=== PATIENT | female | born 1965 | race Caucasian/White ===

== ENCOUNTER 2020-02-21 10:15 | Emergency (ER) | payer BC, SELFPAY ==
[2020-02-21] VITALS (15 sets, daily range): BP systolic 91–112; BP diastolic 51–70; PULSE 54–72; RESP 13–22; TEMP 36.4–36.8; O2SAT 93–99
--- NOTE | 2020-02-21 10:30 | DI.MRI_ITS ---
EXAM: MR BRAIN WO CLINICAL HISTORY: Dizziness. TECHNIQUE: Multiplanar multisequence MRI of the brain was performed. CONTRAST MATERIAL: IV Contrast: Noncontrast COMPARISON: No exams were available for comparison FINDINGS: VENTRICLES AND EXTRA AXIAL SPACES: Normal in size and morphology for the patient's age. HEMORRHAGE: None. CEREBRAL PARENCHYMA: No focus of restricted diffusion to suggest acute infarct. No space-occupying le brittany identified. MIDLINE SHIFT: None. BRAINSTEM/CEREBELLUM: Normal. VISUALIZED PARANASAL SINUSES/MASTOIDS: Minimal ethmoid mucosal thickening. OTHER FINDINGS: The orbits are unremarkable. The pituitary is normal in size. The vascular flow voi ds appear intact. IMPRESSION: Unremarkable MRI of the brain. DATA REPOSITORY:
--- NOTE | 2020-02-21 10:30 | RT.EKG_ITS ---
APPROVED REPORT Exam: Resting ECG Patient Location: E HR:61 bpm ECG Measurements Heart Rate 61 AXIS ME 151 P 6 QRSd 117 QRS 22 QT 454 T 54 QTc 458 Conclusion Sinus rhythm...normal P axis, V-rate 60- 99 Nonspecific intraventricular conduction delay...QRSd >115mS, not LBBB/RBBB
--- NOTE | 2020-02-21 10:45 | DI.MRI_ITS ---
CLINICAL HISTORY: Dizziness. TECHNIQUE: 3D ylys-eh-nvdutr study was performed. COMPARISON: None. FINDINGS: Carotid Arteries: Petrous: Normal. Cavernous: Normal. Cerebral: Normal. Middle Cerebral Arteries: Right: No aneurysm or significant stenosis. Left: No aneurysm or significant stenosis. Anterior Cerebral Arteries: Right: No aneurysm or significant stenosis. Left: No aneurysm or significant stenosis. Vertebral Arteries: Right: No aneurysm or significant stenosis. Left: No aneurysm or significant stenosis. . Basilar Artery: No aneurysm or significant stenosis. Small Vessels: No evidence of beading. IMPRESSION: Normal MRA examination of the [place]. DATA REPOSITORY:
--- NOTE | 2020-02-21 10:45 | DI.MRI_ITS ---
EXAM: MR ANGIO NECK WO CLINICAL HISTORY: Dizziness TECHNIQUE: 2D and 3D ymdv-ax-eihxas sequences were performed. COMPARISON: No exams were available for comparison FINDINGS: The bilateral common, internal and external carotid arteries are patent and normal in diameter throug hout. There is no evidence of dissection, significant stenosis or mural irregularity. IMPRESSION: Negative MRA of the neck DATA REPOSITORY:
--- NOTE | 2020-02-21 10:47 | ED.GENADUL_ITS ---
Discharge Plan Disposition Patient Disposition: HOME Condition: Stable Discharge Details Clinical Impression: Vertigo Primary Care Provider: Vianey,Local ED Provider: Savanah Nunez Home Meds and New Rx's Prescriptions: New meclizine 25 mg tablet 25 mg PO BID PRN (Reason: dizziness) Qty: 14 RF: 0 ondansetron HCl [Zofran] 4 mg tablet 4 mg PO Q8H PRN (Reason: nausea and vomiting) Qty: 10 RF: 0 Discharge Instructions Instructions: Vertigo (ED) Additional Instructions: Follow up with primary care provider in 3-5 days. Return to ED sooner if any worsening or concerns. Increase oral fluids. Please take Tylenol or Ibuprofen with food every 4-6 hours as needed for pain and swelling. Return for any worsening headache, continued vomiting, fever or any concerns. Take medications as prescribed. Discharge Data Discharge Date/Time-TO BE ENTERED AT DEPARTURE: 02/21/20 14:42 Medical Decision Making <Savanah Nunez - Last Filed: 02/21/20 15:32> 54-year-old female presents to the ER with chief complaint of dizziness with acute onset while on a walk earlier today. Patient states that she looked up to take a picture of them out and became suddenly dizzy, she then began staggering and sat down on the side of the road. She then vomited 2-3 times. Since then the dizziness has been constant, positive nausea. She is dizzy even while stationary with her eyes closed. She does have a history of migraine headaches but does not complain of a headache at this time. Has no visual disturbances no aura. She is alert and oriented x3 upon arrival focal neuro is intact, no gross neuro deficits noted. She does have mild nystagmus. Denies any chest pain, abdominal pain she reports loose stools this morning. Denies any dysuria or fever. EKG was reviewed by Dr. Baldev Mendoza MD ER attending, normal sinus rhythm, no STEMI please see his official read. Patient transported via stretcher to MRI, reports feeling better after meclizine and NS. 1317: Discussed MRI result she is within normal limits with patient who verbalizes understanding. Awaiting second serial troponin which is due at 1330 patient agrees to wait for that blood draw. Plan is to discharge patient home with a diagnosis of benign positional vertigo. Differential diagnosis includes CVA, venous sinus thrombosis, vertigo, viral illness. Serial troponin is within normal limits patient to be discharged home with strict return instructions, verbalized understanding. Prescription given for meclizine and instructed to follow-up with PCP in the next 1 to 2 weeks, verbalizes understanding. <Baldev Mendoza MD - Last Filed: 03/15/20 23:37> Patient seen, examined, and discussed with TEJ Nunez. Considered cardiogenic etiology. Screening ECG was reviewed and interpreted by me: Please see report, sinus rhythm noted with nonspecific intraventricular conduction delay with QRS duration of 117. Exam concerning for very subtle vertical nystagmus, hints testing otherwise negative. Consider central pathology. Plan to obtain MRI of the brain and MRA of the brain and neck. I agree with treatment plan as discussed/documented. HPI <Savanah Nunez - Last Filed: 02/21/20 15:32> General Mode of arrival: wheelchair . Date/Time Provider Initiated Documentation: 02/21/20 10:16 . Limitations to Documentation: no limitations . Information obtained by: patient . HPI Narrative: 54-year-old female presents to the ER with chief complaint of dizziness with acute onset while on a walk earlier today. Patient states that she looked up to take a picture of them out and became suddenly dizzy, she then began staggering and sat down on the side of the road. She then vomited 2-3 times. Since then the dizziness has been constant, positive nausea. She is dizzy even while stationary with her eyes closed. She does have a history of migraine headaches but does not complain of a headache at this time. Has no visual disturbances no aura. She is alert and oriented x3 upon arrival focal neuro is intact, no gross neuro deficits noted. She does have mild nystagmus. Denies any chest pain, abdominal pain she reports loose stools this morning. Denies any dysuria or fever. Related Data Home Medications Medication Instructions Recorded Confirmed meclizine 25 mg PO BID PRN #14 tab 02/21/20 ondansetron HCl [Zofran] 4 mg PO Q8H PRN #10 tab 02/21/20 Previous Rx's Medication Instructions Recorded meclizine 25 mg PO BID PRN #14 tab 02/21/20 ondansetron HCl [Zofran] 4 mg PO Q8H PRN #10 tab 02/21/20 Allergies Allergy/AdvReac Type Severity Reaction Status Date / Time amoxicillin Allergy Unverified 02/21/20 10:38 General Stated Complaint: Dizzy/Sync SCOT: 3 Review of Systems <Savanah Nunez - Last Filed: 02/21/20 15:32> Narrative: Constitutional: Negative for weight loss, alert and oriented, well groomed, normal body habitus, appears comfortable. HEENT: Denies trauma, headaches, blurry vision, nasal discharge, sore throat, trouble swallowing. Chest: Denies chest pain, palpitations, irregular rhythm, hypertension. Respiratory: Denies Shortness of breath, cough, hemoptysis. GI: Denies abdominal pain, nausea, vomiting, diarrhea, constipation. : Denies dysuria, hematuria, flank pain, rectal bleeding. Neuro: Denies blurry vision, weakness, syncope, headache or facial numbness. Positive dizziness. Hematologic: Denies easy bruising, intolerance to heat or cold, hair loss. PFSH <Savanah Nunez - Last Filed: 02/21/20 15:32> Social History Smoking/Tobacco Use Status: Never Alcohol Intake: current Alcohol Intake frequency: a few times a month Drug use: Never Substance use type: does not use Do you feel safe at home: Yes Do you feel safe in your relationship?: Yes Exam <Savanah Nunez - Last Filed: 02/21/20 15:32> Narrative Exam Narrative: Constitutional: Alert and oriented x3. Appears stated age. Normal body habitus. Head: Normocephalic, no trauma. Eyes: Pupils PERRLA, Red reflex noted, EOM's intact. Eyelids symmetrical without lesions, discharge, or swelling. ENT: Bilateral TM's WNL, External ear normal to inspection, no mastoid TTP, swelling, or erythema, Nasal turbinates WNL, no nasal discharge. Normal dentition, Posterior pharynx WNL, no exudate. Chest: RRR, Normal S1, S2, distal pulses intact. Resp: Lungs clear to auscultation bilaterally, no wheezes, rales, or rhonchi. Musculoskeletal: Normal gait, 5/5 strength to all four extremities. Skin: No suspicious rashes or lesions. Capillary refill less than 2 sec. Neurologic: Cranial nerves II-XII intact. Alert and oriented x 3. DTR's intact. Mild vertical nystagmus. Hematologic/Lymphatic: No ecchymosis, no lymphadenopathy. Course <Savanah Nunez - Last Filed: 02/21/20 15:32> Vital Signs Vital signs: Vital Signs Temperature 36.4 C 02/21/20 10:27 Pulse 63 02/21/20 10:27 Blood Pressure 112/69 02/21/20 10:27 Pulse Oximetry 97 02/21/20 10:27 Temperature 36.4 C 02/21/20 10:27 Temperature Source Temporal Artery Scan 02/21/20 10:27 Pulse 63 02/21/20 10:27 Respiratory Rate 18 02/21/20 10:46 Respiratory Effort Non-Labored 02/21/20 10:46 Respiratory Depth Normal 02/21/20 10:46 Respiratory Pattern Normal 02/21/20 10:46 Blood Pressure 112/69 02/21/20 10:27 Blood Pressure Position Supine 02/21/20 10:27 Pulse Oximetry 97 02/21/20 10:27 Oxygen Delivery Method Room Air 02/21/20 10:27 Oxygen Flow Rate 0 02/21/20 10:27 Pain Level 0 02/21/20 10:27
[2020-02-21 10:58] LABS: Abs Immature Grans 0.02 10^3/uL (0.0-0.06); Absolute Basophil Count 0.04 10^3/uL (0.0-0.2); Absolute Eosinophil Count 0.33 10^3/uL (0.0-0.7); Absolute Monocyte Count 0.43 10^3/uL (0.1-0.8); Absolute Neutrophil Count 1.61 10^3/uL (1.2-6.7); Basophils % 0.8; Eosinophils % 6.3; HCT 40.3 % (36.0-46.0); HGB 13.5 g/dL (11.2-15.7); Immature Grans % 0.4; Lymphocytes % 53.5; MCH 28.7 pg (27.0-33.0); MCHC 33.5 % (32.0-36.0); MCV 85.7 fL (80-95); MPV 11.1 fL (8.0-11.0); Monocytes % 8.2; Neutrophils % 30.8; Nucleated RBC 0 %; Platelet Count 200 10^3/uL (130-400); RDW 13.1 % (11.7-14.6); WBC 5.23 10^3/uL (4.4-10.8)
[2020-02-21] MEDS: Meclizine 25 MG TAB PO (11:01)
[2020-02-21] MEDS: Normal Saline 1,000 ML 1000 ML IV (11:02)
[2020-02-21] MEDS: Ondansetron 4 MG/2 ML VIAL IVP (11:02)
[2020-02-21 11:14] LABS: ALT 27 U/L (14-59); AST 17 U/L (15-37); Albumin 3.5 g/dL (3.4-5.0); Alkaline Phosphatase 67 U/L (46-116); Anion Gap 9.6 mmol/L (3-11); BUN 17 mg/dL (7-18); Bilirubin, Total 0.5 mg/dL (0.2-1.0); CO2 24.4 mmol/L (21.0-32.0); CREATININE 0.85 mg/dL (0.55-1.02); Calcium 8.8 mg/dL (8.5-10.1); Chloride 106 mmol/L (98-107); Glucose 110 mg/dL (74-106); Magnesium 1.8 mg/dL (1.8-2.4); Potassium 3.6 mmol/L (3.5-5.1); Sodium 140 mmol/L (136-145); Total Protein 7.1 g/dL (6.4-8.2)
[2020-02-21 11:15] LABS: Troponin I < 0.05 ng/mL (<0.06)
[2020-02-21 12:23] LABS: Bilirubin Negative (Negative); Blood Negative (Negative); Clarity Clear (Clear); Glucose Negative (Negative); Ketones Negative (Negative); Leukocyte Esterase Moderate (Negative); Nitrite Negative (Negative); Specific Gravity 1.025 (1.005-1.025); Urobilinogen 0.2 EU/dL (Up TO 0.2)
[2020-02-21 12:35] LABS: Bacteria Moderate HPF (Negative); C & S Indicated? No/Sq. Contamination; Casts Negative LPF (Negative); Crystals Negative HPF (Negative); Epithelial Cells Many HPF (Negative); Mucus Negative (Negative); WBC 20-50 HPF (0-5)
--- NOTE | 2020-02-21 13:30 | RT.EKG_ITS ---
APPROVED REPORT Exam: Resting ECG Patient Location: E HR:58 bpm ECG Measurements Heart Rate 58 AXIS [place] 139 P 30 QRSd 115 QRS 5 QT 471 T 49 QTc 464 Conclusion Sinus bradycardia...rate< 60 Incomplete right bundle branch block...QRSd >112, terminal axis(90,270)
[2020-02-21 13:59] LABS: Troponin I < 0.05 ng/mL (<0.06)
== END 2020-02-21 14:42 | disposition home or self-care (01) ==
PROVIDERS: Emergency Provider Registered Nurse Emergency
DX: R42 Dizziness and giddiness (principal); R11.2 Nausea with vomiting, unspecified
CPT/HCPCS: 36415; 36416; 70544; 70547; 80053; 82962; 93005; 96361; 96374; 99285; 70551; 81003; 81015; 83735; 84484; 85025; 93010; 99284; J2405

== ENCOUNTER 2021-08-19 10:41 | Outpatient (CLI) | payer OTHER, SELFPAY ==
--- OUTSIDE RECORDS SUMMARY | 2021-08-19 10:47 | XMS_ITS ---
:1965 Author Organization [facility] Address [address], [place] [id number] Care Team Providers Name Role Phone Naz Stock Unavailable Unavailable PROBLEMS Type Condition ICD9-CM Code WQK22-LQ Code Onset Condition SNO MED Code Dates Status Problem Migraine with G43.109 Active 048928 6 aura, not intractable, without status migrainosus Problem Obesity, E66.9 Active 902716769 unspecified ALLERGIES Substance Reaction Event Type Date Status Amoxicillin hives Drug Allergy Jul, Active ENCOUNTERS Encounter Location Date Diagnosis [address] Jul, Migraine with aura, not [facility] [address] [place] [address] intractab le, without [phone] status migrainos us G43.109 ; Cough R05 and Encounter for general adul t medical examination with out abnormal finding s Z00.00 [facility] [address] [place] [address] Rd Jun, [facility] [address] [place] [id number] [facility] [address] [place] [address] Rd Apr, Migraine with aura, not [facility] [address] [place] [address] intractab le, without [phone] status migrainos us G43.109 [facility] [address] [place] [address] Rd Feb, Encounter for immunization [facility] [address] [place], [place] Z23 and M igraine with [id number] aura, not intrac table, without status m igrainosus G43.109 [facility] [address] [place] [address] Rd Oct, Encounter for general [facility] [address] [place] [address] adult med ical examination [id number] without abnormal findings Z00.00 [facility] [address] [place] [address] Rd 11 Jul, 2019 Cough R05 [facility] [address] [place], [place] [id number] [facility] [address] [place] [address] Rd Oct, Encounter for general [facility] [address] [place], [place] adult med ical examination [id number] without abnormal findings Z00.00 and Migra ine with aura, not intrac table, without status m igrainosus G43.109 [facility] [address] [place] [address] Rd Dec, [facility] [address] [place], [place] [id number] [facility] [address] Oct, Encounter for general [facility] [address] [place], [place] adult med ical examination [id number] without abnormal findings Z00.00 ; Migrain e with aura, not intrac table, without status m igrainosus G43.109 ; Planta r fascial fibromatosis M72 .2 and Obesity, unspeci fied E66.9 IMMUNIZATIONS Vaccine Route Administration Date Status Shingrix Unknown May 04, 2019 Administered Shingrix Unknown Mar 02, 2019 Administered TDap Unknown October 23, 2013 Administered Influenza (split) Unknown Feb 25, 2020 Administered SOCIAL HISTORY Qualifiers Date Never Smoker REASON FOR REFERRAL FUNCTIONAL STATUS PLAN OF CARE Activity Details Follow Up prn Reason: Pending Test CBC, WITH AUTO DIFF Pending Test COMPREHENSIVE METABOLIC PROF ILE Pending Test TSH VITAL SIGNS Temperature 97.0 degrees Fahrenheit 2019-08-01 Heart Rate 68 /min 2021-08-17 Heart Rate 65 /min 2020-02-25 Heart Rate 74 /min 2019-10-23 Heart Rate 72 /min 2019-08-01 Heart Rate 78 /min 2018-11-10 Heart Rate 80 /min 2017-10-24 Height 69 in 2021-08-17 Height 69 in 2020-02-25 Height 69 in 2019-10-23 Height 69 in 2019-08-01 Height 69 in 2018-11-10 Height 69 in 2017-10-24 Weight 230 lbs 2021-08-17 Weight 230 lbs 2020-02-25 Weight 224 lbs 2019-10-23 Weight 232 lbs 2018-11-10 Weight 230 lbs 2017-10-24 BMI 33.96 kg/m2 2021-08-17 BMI 33.96 kg/m2 2020-02-25 BMI 33.08 kg/m2 2019-10-23 BMI 34.26 kg/m2 2018-11-10 BMI 33.96 kg/m2 2017-10-24 Blood pressure systolic 120 mm Hg 2021-08-17 Blood pressure diastolic 80 mm Hg 2021-08-17 MEDICATIONS Medication Instructions Dosage Frequency Start Date End Date Duration S pramod Advil 200 MG Orally Three 1 tablet 8h Activ e times a day with food or milk as needed PROCEDURES Procedure Date Ordered Result Body Site IMMUNIZATION ADMIN Feb 25, 2020 [id number] VACC ABX FREE IM Feb 25, 2020 RESULTS Name Result Date Reference Range COMPREHENSIVE METABOLIC PANEL 2019-01-04 GLUCOSE 90 65-99 UREA NITROGEN (BUN) 19 7-25 CREATININE 0.88 0.50-1.05 eGFR NON-AFR. [place]ALLISIAN 74 > OR = 60 eGFR 86 > OR = 60 BUN/CREATININE RATIO NOT APPLICABLE 6-22 SODIUM 140 135-146 POTASSIUM 4.3 3.5-5.3 CHLORIDE 106 98-110 CARBON DIOXIDE 28 20-32 CALCIUM 9.3 8.6-10.4 PROTEIN, TOTAL 6.6 6.1-8.1 ALBUMIN 4.1 3.6-5.1 GLOBULIN 2.5 1.9-3.7 ALBUMIN/GLOBULIN RATIO 1.6 1.0-2.5 BILIRUBIN, TOTAL 0.6 0.2-1.2 ALKALINE PHOSPHATASE 63 33-130 AST 18 10-35 ALT 24 6-29 TSH W/REFLEX TO FT4 2019-01-04 TSH W/REFLEX TO FT4 2.12 CBC (INCLUDES DIFF/PLT) 2019-01-04 WHITE BLOOD CELL COUNT 4.6 3.8-10.8 RED BLOOD CELL COUNT 4.79 3.80-5.10 HEMOGLOBIN 13.9 11.7-15.5 HEMATOCRIT 41.7 35.0-45.0 MCV 87.1 80.0-100.0 MCH 29.0 27.0-33.0 MCHC 33.3 32.0-36.0 RDW 13.0 11.0-15.0 PLATELET COUNT 199 140-400 MPV 12.6 7.5-12.5 ABSOLUTE NEUTROPHILS 1697 0715-2814 ABSOLUTE LYMPHOCYTES 2245 850-3900 ABSOLUTE MONOCYTES 414 200-950 ABSOLUTE EOSINOPHILS 202 15-500 ABSOLUTE BASOPHILS 41 0-200 NEUTROPHILS 36.9 LYMPHOCYTES 48.8 MONOCYTES 9.0 EOSINOPHILS 4.4 BASOPHILS 0.9 LIPID PANEL 2019-01-04 CHOLESTEROL, TOTAL 207 <200 HDL CHOLESTEROL 55 >50 TRIGLYCERIDES 96 <150 LDL-CHOLESTEROL 132 CHOL/HDLC RATIO 3.8 <5.0 NON HDL CHOLESTEROL 152 <130 REASON FOR VISIT Tested positive for COVID on 07/23/2021, would like to be checked out, questions, follow up on ED visit at [facility] on 02/21/2020, ED follow up, Annual, persistent cough , Annual, feet, HIGHER LEVEL TEACHING ASSISTANT, Annual Insurance Providers [facility] Member Patient Patient Patient Patient Patient Subscriber Subscriber Subscriber Group Insurance Plan Plan Plan Plan ID Relationship Address Phone Name Date of ID Name Date of No Type Insurance Insurance Insurance Coverage to Subscriber Address Phone Name Dates Health [phone] Health self Bianca [id number] [id number] [id number] [place] [address] [employer] [address] [employer] self Bianca [id number] Y [id number] [facility] Candido Abdi [address] [facility] [address] [facility] [address]
--- OUTSIDE RECORDS SUMMARY | 2021-08-19 10:47 | XMS_ITS ---
:1965 Author Organization [facility] Address [address] [place], [place] [address] Care Team Providers Name Role Phone Amy Pisano Unavailable Unavailable PROBLEMS Unknown Problems ALLERGIES Substance Reaction Event Type Date Status Amoxicillin Unknown Drug Allergy Feb, Active ENCOUNTERS Encounter Location Date Diagnosis [facility] [address], [place], [place] [phone] [facility] [address], [place], [place] [phone] [facility] [address] Feb, Encounter for gynecological [place], [place] examination Z01. 419 ; [id number] Encounter for sc reening mammogram for ma lignant neoplasm of [place] st Z12.31 and Encounter fo r screening for human papill omavirus (HPV) Z11.51 [facility] [address] Dec, Encounter for gynecological [place], [place] examination Z01. 419 ; [id number] Encounter for sc reening mammogram for ma lignant neoplasm of [place] st Z12.31 and Encounter fo r screening for human papill omavirus (HPV) Z11.51 IMMUNIZATIONS No Known Immunizations SOCIAL HISTORY Qualifiers Date Never Smoker REASON FOR REFERRAL FUNCTIONAL STATUS PLAN OF CARE Activity Details Future Appointment Provider Name:Amy Botello in, 2022-02-22 02:30:00 PM, [address] , [place], [place], [phone], Future Test MAMMOGRAM, SCREENING 1 VITAL SIGNS Weight 238 lbs 2021-03-16 Weight 229 lbs 2019-12-31 Height 69 in 2021-03-16 Height 69 in 2019-12-31 BMI 35.14 kg/m2 2021-03-16 BMI 33.81 kg/m2 2019-12-31 Blood pressure systolic 124 mm Hg 2021-03-16 Blood pressure diastolic 78 mm Hg 2021-03-16 MEDICATIONS Medication Instructions Dosage Frequency Start Date End Date Duration S tatus Advil Unknown PROCEDURES No Known procedures RESULTS Name Result Date Reference Range PAP W/HR HPV 2021-03-16 - [place] RAQUEL SCR JAKUB W-CAD 2021-01-02 - [place] RAQUEL SCR JAKUB W-CAD 2019-11-07 REASON FOR VISIT emperatriz, rand results, emperatriz pk 3, emperatriz, emperatriz, emperatriz, emperatriz, emperatriz Insurance Providers [facility] Member Patient Patient Patient Patient Patient Subscriber Subscriber Subscriber Group Insurance Plan Plan Plan Plan ID Relationship Address Phone Name Date of ID Name Date of No Type Insurance Insurance Insurance Coverage to Subscriber Address Phone Name Dates [place] [phone] [place] self Bianca [id number] [place] [id number] [facility] [employer] [facility] [address] [facility] [phone] BLUE self Bianca [id number] SHIELD ATTN 83 SHIELD [place] 49 011 [employer] [facility] [address]
--- OUTSIDE RECORDS SUMMARY | 2021-08-19 10:47 | XMS_ITS ---
:1965 Author Organization [facility] Address [address] [facility] [address] [place], [place] [id number] Care Team Providers Name Role Phone ARMAND TAM Unavailable Unavailable PROBLEMS Unknown Problems ALLERGIES No Information ENCOUNTERS Encounter Location Date Diagnosis [facility] [address] Feb, M elanocytic nevi of Dermatology [place], [place] [id number] trunk D22.5 ; Melanocytic nevi of left upper limb, incl uding shoulder D22.62 ; Melanocytic nevi of right upper limb , including should er D22.61 and Melan ocytic nevi of left low er limb, including hip D2 2.72 [facility] [address] Feb, M elanocytic nevi of [facility] [place], [place] [id number] trunk D22.5 ; Melanocytic nevi of left upper limb, incl uding shoulder D22.62 ; Melanocytic nevi of right upper limb , including should er D22.61 and Melan ocytic nevi of left low er limb, including hip D2 2.[address] Feb, M elanocytic nevi of [facility] [place], [place] [id number] trunk D22.5 ; Melanocytic nevi of left upper limb, incl uding shoulder D22.62 ; Melanocytic nevi of right upper limb , including should er D22.61 and Melan ocytic nevi of left low er limb, including hip D2 2.72 [facility] [address] Jan, Dermat[place], [place] [phone] [facility] [address] Jan, Dermat[place], [place] [id number] IMMUNIZATIONS No Known Immunizations SOCIAL HISTORY Never Assessed REASON FOR REFERRAL FUNCTIONAL STATUS PLAN OF CARE Activity Details Future Appointment Provider Name:ARMAND Cristhian KEON Jose, 2022-02-22 10:40:00 AM, [address], [place], [place], [phone], VITAL SIGNS MEDICATIONS Unknown Medications PROCEDURES No Known procedures RESULTS No Results REASON FOR VISIT JAIR, annual skin check, Annual skin check, ANNUAL, ANNUAL, ANNUAL, skin check edwin from 03-05-19 Insurance Providers [facility] Member Patient Patient Patient Patient Patient Subscriber Subscriber Subscriber Group Insurance Plan Plan Plan Plan ID Relationship Address Phone Name Date of ID Name Date of No Type Insurance Insurance Insurance Coverage to Subscriber Address Phone Name Dates [employer] of [phone] [employer] of self [id number] [facility] [address] [facility] KASH 49 0 11 [facility] [address] Health [phone] Health self [place] [id number] HHAT [id number] AT3 Plans Inc [id number] Plans [facility] [place] [address]
[2021-08-19 15:41] LABS: Abs Immature Grans 0.01 10^3/uL (0.0-0.06); Absolute Basophil Count 0.05 10^3/uL (0.0-0.2); Absolute Eosinophil Count 0.32 10^3/uL (0.0-0.7); Absolute Lymphocyte Count 2.68 10^3/uL (1.2-3.4); Absolute Monocyte Count 0.54 10^3/uL (0.1-0.8); Absolute Neutrophil Count 2.43 10^3/uL (1.2-6.7); Basophils % 0.8; Eosinophils % 5.3; HCT 43.7 % (36.0-46.0); HGB 13.9 g/dL (11.2-15.7); Immature Grans % 0.2; Lymphocytes % 44.4; MCHC 31.8 % (32.0-36.0); MCV 88.1 fL (80-95); MPV 11.2 fL (8.0-11.0); Neutrophils % 40.3; Nucleated RBC 0 %; Platelet Count 212 10^3/uL (130-400); RBC 4.96 10^6/uL (3.93-5.22); RDW 13.2 % (11.7-14.6); RDW-SD 43.1 fL; WBC 6.03 10^3/uL (4.4-10.8)
[2021-08-19 17:05] LABS: ALT 27 U/L (14-59); AST 12 U/L (15-37); Albumin 3.8 g/dL (3.4-5.0); Alkaline Phosphatase 73 U/L (46-116); Anion Gap 8.5 mmol/L (3-11); BUN 25 mg/dL (7-18); Bilirubin, Total 0.3 mg/dL (0.2-1.0); CO2 28.5 mmol/L (21.0-32.0); Chloride 105 mmol/L (98-107); Estimated GFR 57.15 (mL/min/1.73m2); Glucose 112 mg/dL (74-106); Potassium 4.3 mmol/L (3.5-5.1); Sodium 142 mmol/L (136-145); Total Protein 7.4 g/dL (6.4-8.2)
== END 2021-08-19 10:42 | disposition home or self-care (01) ==
LOC: LBO 10:45
PROVIDERS: PCP Internal Medicine; Visit Provider Internal Medicine
DX: Z00.00 Encounter for general adult medical examination without abnormal findings (principal); G43.109 Migraine with aura, not intractable, without status migrainosus
CPT/HCPCS: 36415; 80053; 84443; 85025

== ENCOUNTER 2022-06-15 14:52 | Emergency (ER) | payer OTHER, SELFPAY ==
[2022-06-15] VITALS (15 sets, daily range): BP systolic 147; BP diastolic 95; PULSE 61–78; RESP 18; TEMP 36.9; O2SAT 75–98
--- NOTE | 2022-06-15 14:45 | RT.EKG_ITS ---
APPROVED REPORT Exam: Resting ECG Reason for Exam: left side arm pain Patient Location: E HR:71 bpm ECG Measurements Heart Rate 71 AXIS MD 119 P 30 QRSd 99 QRS -14 QT 386 T 58 QTc 420 Conclusion Sinus rhythm...normal P axis, V-rate 60- 99
--- NOTE | 2022-06-15 15:30 | DI.RAD_ITS ---
Exam(s) XR CHEST 2V PA LATERAL EXAM: XR CHEST 2V PA LATERAL CLINICAL HISTORY: chest pain TECHNIQUE: 2D digital imaging was performed. COMPARISON: No exams were available for comparison FINDINGS: Leads overlie the chest. HEART: Normal size. Aorta: Tortuous. PULMONARY VASCULATURE: Normal. LUNGS: Clear. PLEURAL SPACE: No pleural effusion or pneumothorax. BONE:Unremarkable for age. IMPRESSION: No acute abnormality. DATA REPOSITORY: RADIATION DOSE DELIVERED:
--- NOTE | 2022-06-15 15:50 | ED.GENADUL_ITS ---
Discharge Plan Disposition Patient Disposition: Home Condition: Stable Discharge Details Clinical Impression: Atypical chest pain Primary Care Provider: Naz Stock ED Provider: Trisha Rodriguez Home Meds and New Rx's Prescriptions: Continued ibuprofen 200 mg tablet 200 mg PO TID PRN Discharge Instructions Instructions: Chest Pain (ED) Additional Instructions: Your pain is atypical for chest pain, my recommendation is to take Tylenol as needed for and ibuprofen for pain control Follow-up with your doctor and I have ordered an outpatient stress test Please return should you have any new or worsening complaints and follow-up with your eye doctor tomorrow as discussed Referrals: Naz Stock [Primary Care Provider] - Discharge Data Discharge Date/Time-TO BE ENTERED AT DEPARTURE: 06/15/22 20:59 Medical Decision Making Patient presenting to the emergency department for chief complaint of left-sided chest pain. Patient states this happened approximately an hour ago while sitting at the desk. She states slight spasms of the chest and radiating pain into the left arm. She states this is intermittently occurred in the past but been very short episodes. Patient has significant concern due to high family history of cardiac disease including heart attacks at younger ages. Patient states she has not a smoker, has no hyperlipidemia, no diabetes, is classified as overweight. Physical exam is unremarkable for any acute findings. We will plan on performing EKG and cardiac labs given significant family history. We will give patient IV acetaminophen pending results. Suspect muscular spasm but given family history we will perform standard cardiac work-up. See physician interpretation for full interpretation of EKG. upon my review patient is in sinus rhythm rate of 71, does not not meet acute criteria for STEMI. Initial labs were reviewed and are unremarkable. Patient signed out to Trisha GLASS pending review of delta troponin and disposition for highly suspicious muscular spasm versus atypical chest pain. Was delay in documentation of signout due to computer downtime. HPI General Mode of arrival: ambulatory . Date/Time Provider Initiated Documentation: 06/15/22 14:55 . Limitations to Documentation: no limitations . Information obtained by: patient and RN notes reviewed . History of Present Illness 57 year old F presents to the emergency department with the chief complaint of Left-sided chest pain, described as moderate, with intensity rated at 8. Quality is described as other (Spasming), and is localized to the chest and left. Patient extremity. Patient started experiencing this hour(s) (1) and it has been constant (Slightly improving). No relieving factors improve symptom(s), No exacerbating factors reported . Patient notes other (Short episode of blurry vision is 4 days ago that is resolved). Patient did receive the following treatments prior to arrival, none Related Data Home Medications Medication Instructions Recorded Confirmed ibuprofen 200 mg tablet 200 mg PO TID PRN 02/02/22 06/15/22 Allergies Allergy/AdvReac Type Severity Reaction Status Date / Time amoxicillin Allergy Intermediate Verified 06/15/22 15:02 General Stated Complaint: Chest Pain SCOT: 2 Review of Systems Constitutional Constitutional: Denies chills, Denies fever(s) and Denies malaise Cardiovascular Cardiovascular: Reports as per HPI, Reports chest pain, Denies chest pain with activity, Denies syncope, Denies irregular heart rhythm, Denies palpitations and Denies dyspnea Respiratory Respiratory: Denies cough, Denies hemoptysis and Denies dyspnea Gastrointestinal Gastrointestinal: Denies abdominal pain, Denies nausea and Denies vomiting Neurologic Neurologic: Denies syncope Psychiatric Psychiatric: Denies anxiety Endocrine Endocrine: Denies palpitations PFSH All Active Problems (Updated 06/15/22 @ 19:29 by QUAN Rosenberg) Atypical chest pain (Acute) Atypical migraine (Acute) Medical History Migraine with aura, intractable, without status migrainosus Obesity Surgical History History of appendectomy Hx of breast reduction, elective Hx of section Family History Father , 82 YRS OLD Heart disease Mother Lichen planus History of melanoma Osteoporosis Daughter Hx of migraines Social History Smoking/Tobacco Use Status: Never Smoking risk assessment performed?: Yes Alcohol Intake: current Alcohol Intake frequency: a few times a month Drug use: Never Substance use type: does not use Do you feel safe at home: Yes Do you feel safe in your relationship?: Yes Exam Const General: cooperative, healthy appearing, comfortable, no acute distress, not diaphoretic and not ill appearing Orientation: alert, awake and oriented x3 Limitations: mental status not altered Neck Neck: normal visual inspection, full ROM, trachea midline, supple and no anterior neck swelling Carotids: normal carotid upstroke and no bruits Resp Effort & Inspection: normal respiratory effort and able to speak in complete sentences Auscultation: clear to auscultation bilaterally Cardio Jugular venous pressure: no JVD Palpation: normal PMI Rate: regular rate Rhythm: regular rhythm Heart Sounds: S1 normal, S2 normal, no click, no gallops, no murmurs and no rubs Bruits: no abdominal aortic bruits and no carotid bruits Pulses: radial pulses present bilaterally 2+ Skin General skin exam: no rashes or lesions noted Neuro General: patient alert, patient awake, patient oriented x3, tone normal and moves all extremities Course Vital Signs Vital signs: Vital Signs Temperature 36.9 C 06/15/22 14:57 Pulse 78 06/15/22 14:57 Respiratory Rate 18 06/15/22 14:57 Blood Pressure 147/95 H 06/15/22 14:57 Pulse Oximetry 98 06/15/22 14:57 Temperature 36.9 C 06/15/22 14:57 Temperature Source Skin 06/15/22 14:57 Pulse 78 06/15/22 14:57 Respiratory Rate 18 06/15/22 14:57 Respiratory Effort 06/15/22 15:03 Blood Pressure 147/95 H 06/15/22 14:57 Blood Pressure Position Sitting 06/15/22 14:57 Pulse Oximetry 98 06/15/22 14:57 Oxygen Delivery Method Room Air 06/15/22 14:57 Oxygen Flow Rate 0 06/15/22 14:57 Pain Level 4 06/15/22 14:57
[2022-06-15 16:32] LABS: ALT 29 U/L (14-59); AST 18 U/L (15-37); Alkaline Phosphatase 75 U/L (46-116); Anion Gap 8.3 mmol/L (3-11); BUN 16 mg/dL (7-18); Bilirubin, Total 0.4 mg/dL (0.2-1.0); CO2 27.7 mmol/L (21.0-32.0); Calcium 9.5 mg/dL (8.5-10.1); Chloride 105 mmol/L (98-107); Glucose 106 mg/dL (74-106); Magnesium 2.1 mg/dL (1.8-2.4); Potassium 3.9 mmol/L (3.5-5.1); Sodium 141 mmol/L (136-145); Troponin I < 50 ng/L (<or=60)
[2022-06-15 16:41] LABS: Abs Immature Grans 0.01 10^3/uL (0.0-0.06); Absolute Basophil Count 0.05 10^3/uL (0.0-0.2); Absolute Eosinophil Count 0.17 10^3/uL (0.0-0.7); Absolute Lymphocyte Count 2.95 10^3/uL (1.2-3.4); Absolute Monocyte Count 0.49 10^3/uL (0.1-0.8); Absolute Neutrophil Count 2.12 10^3/uL (1.2-6.7); Basophils % 0.9; Eosinophils % 2.9; HCT 43.5 % (36.0-46.0); HGB 14.3 g/dL (11.2-15.7); Immature Grans % 0.2; Lymphocytes % 50.9; MCH 28.5 pg (27.0-33.0); MCHC 32.9 % (32.0-36.0); MCV 87 fL (80-95); MPV 12.2 fL (8.0-11.0); Monocytes % 8.5; Neutrophils % 36.6; Platelet Count 254 10^3/uL (130-400); RBC 5.02 10^6/uL (3.93-5.22); RDW 13.1 % (11.7-14.6); RDW-SD 41.4 fL; WBC 5.79 10^3/uL (4.4-10.8)
[2022-06-15] MEDS: ACETAMINOPHEN 1,000 MG/100 ML BTL 400 MG IVPB (16:41)
--- NOTE | 2022-06-15 18:12 | DI.VRAD_ITS ---
PROCEDURE INFORMATION: Exam: XR Chest Exam date and time: 06/15/2022 5:21 PM Age: 57 years old Clinical indication: Other: Chest pain TECHNIQUE: Imaging protocol: Radiologic exam of the chest. Views: 2 views. COMPARISON: MR ANGIO NECK WO 02/21/2020 12:18 PM FINDINGS: Lungs: Unremarkable. No consolidation. Pleural spaces: Unremarkable. No pleural effusion. No pneumothorax. Heart/Mediastinum: Unremarkable. No cardiomegaly. Bones/joints: Unremarkable. IMPRESSION: No acute findings. Dictated and Authenticated by: Ladarius Tay MD. Ordering:CHET Ward MD
[2022-06-15 19:09] LABS: Troponin I < 50 ng/L (<or=60)
--- NOTE | 2022-06-15 19:35 | NUR.NOTE ---
Regular tread mill stress test requisition faxed to [facility] for chest pain.Nursing Note:
== END 2022-06-15 20:59 | disposition home or self-care (01) ==
PROVIDERS: Nurse Practitioner Family; Emergency Provider Physician Assistant; PCP Internal Medicine
DX: R07.89 Other chest pain (principal)
CPT/HCPCS: 36415; 80053; 93005; 96374; 99284; 71046; 83735; 84484; 85025; 93010; J0131

== ENCOUNTER 2022-06-29 01:42 | Outpatient (CLI) | payer OTHER, SELFPAY ==
--- NOTE | 2022-06-29 | ETT_ITS ---
APPROVED REPORT Exam: Exercise Treadmill Patient Location: Out-Patient Room/Bed: Stress Nurse: Senia Samuel RN Ordering Provider:KRISTIE CUMMINS, Contact Number: [phone] BMI: 32.99 Baseline Rhythm: Sinus Rhythm Indications: Chest pain Medical History Medical History: Obesity Cardiac Medications: None Allergies: Amoxicillin Cardiac Risk Factors: Family hx Previous Cardiac Procedures: None Pretest Chest Pain Characteristics: None Exercise History: Indeterminate Physical Disabilities: None Lung Sounds: Clear to auscultation Heart Sounds: Regular Stress Test Details Test: Exercise stress testing was performed using a Isra protocol. Rest Stress HR Resting HR Supine: 71 bpm Max Heart Rate (APMHR): 162 bpm Resting HR Standin bpm Target HR (85% APMHR): 138 bpm Max HR Achieved: 156 bpm % of APMHR: 96 Recovery HR: 93 bpm HR response to stress: Normal HR response to stress BP Resting BP Supine: 108/78 mmHg Resting BP Standin/80 mmHg Max BP: 150/60 mmHg Recovery BP: 118/74 mmHg BP response to stress: Normal blood pressure response to stress. ECG Resting ECG: Sinus Rhythm Ectopy: None Stress ECG: Sinus Tachycardia ST Change: No significant ST segment changes noted Arrhythmia: Rare PAC and PVC Recovery ECG: Sinus Rhythm Recovery ST Change: No significant ST segment changes noted Recovery Arrhythmia: None Clinical Reason for Termination: Fatigue Stress Symptoms: General Fatigue Exercise duration: 8 min27 sec Highest Stage Reached: Stage 3: 3.4 mph at 14% grade. Exercise capacity: 10.16 METs Morales Treadmill Score: 7.4 Rate Pressure Product: 26003 Stress ECG Conclusion 1. The resting electrocardiogram was normal 2. Patient exercised on the Isra protocol and completed a workload of 10.16 METS, stopping due to fa tigue 3. Normal heart rate and blood pressure response to exercise. Patient achieved 96% of maximum predic ying heart rate for age 4. There was no electrocardiographic evidence of myocardial ischemia 5. There were no dysrhythmias Morales Treadmill Score is 7.4 which is Low risk. Stress Test Summary STAGE Time (mins) Speed (mph) Grade (%) HR BP SpO2 SYMPTOMS METS Supine 71 108/78 Standing 77 112/80 95% 1 3 1.7 10 117 134/64 4.5 2 6 2.5 12 140 148/62 7 3 9 3.4 14 156 10 1 min recovery 129 144/62 95% 3 min recovery 93 150/60 6 min recovery 93 118/74
== END 2022-06-29 02:02 ==
PROVIDERS: PCP Internal Medicine; Visit Provider Physician Assistant
DX: R07.9 Chest pain, unspecified (principal)
CPT/HCPCS: 93017

== ENCOUNTER 2023-05-10 13:58 | Outpatient (CLI) | payer OTHER, SELFPAY ==
[2023-05-10 14:29] LABS: Hemoglobin A1C 4.8 % (<5.7)
[2023-05-10 14:39] LABS: ALT 29 U/L (14-59); AST 16 U/L (15-37); Albumin 3.9 g/dL (3.4-5.0); Alkaline Phosphatase 59 U/L (46-116); Anion Gap 7.1 mmol/L (3-11); BUN 16 mg/dL (7-18); Bilirubin, Total 0.5 mg/dL (0.2-1.0); CO2 29.9 mmol/L (21.0-32.0); Calcium 9.7 mg/dL (8.5-10.1); Chloride 104 mmol/L (98-107); Glucose 93 mg/dL (74-106); Potassium 4.1 mmol/L (3.5-5.1); Sodium 141 mmol/L (136-145); Total Protein 7.8 g/dL (6.4-8.2)
== END 2023-05-10 13:59 | disposition home or self-care (01) ==
LOC: LBO 13:58
PROVIDERS: PCP Internal Medicine; Visit Provider Internal Medicine
DX: E66.9 Obesity, unspecified (principal)
CPT/HCPCS: 36415; 80053; 83036

== ENCOUNTER 2024-05-10 16:31 | Outpatient (CLI) | payer OTHER, SELFPAY ==
[2024-05-10 16:17] LABS: Abs Immature Grans 0.01 10^3/uL (0.0-0.06); Absolute Basophil Count 0.06 10^3/uL (0.0-0.2); Absolute Eosinophil Count 0.39 10^3/uL (0.0-0.7); Absolute Lymphocyte Count 2.68 10^3/uL (1.2-3.4); Absolute Monocyte Count 0.53 10^3/uL (0.1-0.8); Absolute Neutrophil Count 2.56 10^3/uL (1.2-6.7); Eosinophils % 6.3 %; HCT 40.5 % (36.0-46.0); HGB 13.4 g/dL (11.2-15.7); Immature Grans % 0.2 %; MCH 29.3 pg (27.0-33.0); MCHC 33.1 % (32.0-36.0); MCV 88 fL (80-95); MPV 10.6 fL (8.0-11.0); Monocytes % 8.5 %; Platelet Count 218 10^3/uL (130-400); RBC 4.58 10^6/uL (3.93-5.22); RDW 12.8 % (11.7-14.6); RDW-SD 41.5 fL; WBC 6.23 10^3/uL (4.4-10.8)
[2024-05-10 16:46] LABS: ALT 16 U/L (14-59); AST 15 U/L (15-37); Albumin 3.6 g/dL (3.4-5.0); Alkaline Phosphatase 59 U/L (46-116); Anion Gap 5.6 mmol/L (3-11); BUN 23 mg/dL (7-18); Bilirubin, Total 0.39 mg/dL (0.2-1.0); CO2 29.4 mmol/L (21.0-32.0); Calcium 8.8 mg/dL (8.5-10.1); Calculated LDL 108 mg/dL (<100); Chloride 110 mmol/L (98-107); Cholesterol 192 mg/dL (<200); Estimated GFR 64.49 (mL/min/1.73m2); Glucose 95 mg/dL (74-106); HDL Cholesterol 75 mg/dL (40-60); Potassium 4.2 mmol/L (3.5-5.1); Sodium 145 mmol/L (136-145); TSH 1.32 uIU/mL (0.36-3.74); Triglyceride 47 mg/dL (<150)
== END 2024-05-10 16:32 | disposition home or self-care (01) ==
LOC: LBO 16:32
PROVIDERS: PCP Internal Medicine; Visit Provider Internal Medicine
DX: Z00.00 Encounter for general adult medical examination without abnormal findings (principal)
CPT/HCPCS: 36415; 80053; 80061; 84443; 85025

== ENCOUNTER 2025-04-15 10:20 | Outpatient (CLI) | payer OTHER, SELFPAY ==
[2025-04-15 10:07] LABS: Abs Immature Grans 0.00 10^3/uL (0.0-0.06); HCT 40.5 % (36.0-46.0); HGB 13.6 g/dL (11.2-15.7); Immature Grans % 0.0 %; MCH 29.5 pg (27.0-33.0); MCHC 33.6 % (32.0-36.0); MCV 88 fL (80-95); MPV 10.6 fL (8.0-11.0); Platelet Count 232 10^3/uL (130-400); RBC 4.61 10^6/uL (3.93-5.22); RDW 12.6 % (11.7-14.6); RDW-SD 40.6 fL; WBC 5.34 10^3/uL (4.4-10.8)
[2025-04-15 11:21] LABS: ALT 18 U/L (10-49); AST 18 U/L (<34); Albumin 4.2 g/dL (3.4-5.0); Alkaline Phosphatase 58 U/L (46-116); Anion Gap 5.2 mmol/L (3-11); BUN 18 mg/dL (9-23); Bilirubin, Total 0.60 mg/dL (0.2-1.2); CO2 24.8 mmol/L (20.0-31.0); Calcium 9.3 mg/dL (8.3-10.6); Chloride 110 mmol/L (98-107); Cholesterol 221 mg/dL (<200); Glucose 80 mg/dL (74-106); HDL Cholesterol 71 mg/dL (>40); Potassium 4.5 mmol/L (3.5-5.1); Sodium 140 mmol/L (136-145); Total Protein 6.9 g/dL (5.7-8.2)
== END 2025-04-15 10:21 | disposition home or self-care (01) ==
LOC: LBO 10:20
PROVIDERS: PCP Internal Medicine; Visit Provider Internal Medicine
DX: Z00.00 Encounter for general adult medical examination without abnormal findings (principal)
CPT/HCPCS: 36415; 80053; 80061; 85025